=== PATIENT | female | born 1995 | race Caucasian/White ===

== ENCOUNTER 2017-07-03 15:43 | Emergency (ER) | payer OTHER ==
[~2017-07-03] VITALS: Ht 162.6 cm; Wt 50.3 kg
[2017-07-03 15:45] VITALS: BP 112/74; TEMP 36.6; Ht 162.6 cm; Wt 50.3 kg
[2017-07-03] MEDS ORDERED: XYLOCAINE 1%/SOD BICARB 20 ML VIAL INFIL ONE (16:00)
[2017-07-03] MEDS ORDERED: BCPILLS PO (16:01)
--- NOTE | 2017-07-03 16:48 | EMERGENCY ROOM VISIT NOTE ---
ED Visit Note First contact with patient: 15:50 CHIEF COMPLAINT: Left hand laceration 20 minutes ago HISTORY OF PRESENT ILLNESS: Patient is a 22-year-old right hand dominant female who presents emergency department By friends for evaluation of a laceration to the palmar aspect of her left hand. She accidentally cut her hand on a piece of metal while assembling a grill. Bleeding has been controlled with pressure. She denies any numbness or weakness of the thumb. REVIEW OF SYSTEMS: Review of systems as per HPI. All other systems reviewed were negative. At least 6 systems reviewed. PMH: Electronic medical records are reviewed and summarized as above/below. See Problem List. Tetanus is up-to-date. SOCIAL HISTORY: Patient lives at home. College student from [place]. She does not smoke. PHYSICAL EXAM: Vital Signs: Reviewed Nurse's notes. There is a 1.5 cm long laceration on the palmar aspect of the left hand, at the base of the thumb over the MCP crease. Hand. The edges are gaping widely apart. There is no foreign material in the wound and it looks clean. There is no active bleeding. No deep structures such as tendons or nerves are seen in the base of the wound. Flexion , extension and circumduction of the thumb is full and strong. Sensation to pain and light touch is intact. EMERGENCY DEPARTMENT COURSE: Using sterile technique, saline and Betadine cleansing, and 1% lidocaine anesthesia, the laceration was irrigated with saline and then repaired with 4, 5-0 nylon sutures. There is no evidence for tendinous injury. Medication reconciliation: I attest that I have personally reviewed the patient' s current medication list. Blood pressure screening : Patient was found to have normal blood pressure on screening and does not require follow-up. Current/Historical Medications Scheduled Control Pills ( Control Pills), 1 TAB PO DAILY Allergies Coded Allergies: No Known Allergies (Unverified , 07/03/17) Vital Signs Date Time Temp Pulse Resp B/P (MAP) Pulse Ox O2 Delivery O2 Flow Rate FiO2 07/03/17 15:45 36.6 73 16 112/74 96 Room Air Departure Information Impression Primary Impression: Laceration of left hand Referrals [facility] (PCP) Patient Instructions My [facility] Additional Instructions Keep wound clean and dry. Do not allow any crusting or dried blood to accumulate on sutures. If this occurs, use a 1:1 solution of hydrogen peroxide/ water on a Q-tip to clean the wound. Use an antibiotic ointment for 3-4 days, then let wound dry. Suture removal in 10-12 days. Return sooner for any signs of infection (increasing redness, swelling, drainage). Ice and elevate for swelling and pain. Ibuprofen 600 mg and Tylenol 1000 mg every 6 hrs for pain.
[2017-07-03 16:53] VITALS: PULSE 75; O2SAT 98
== END 2017-07-03 16:56 | disposition home or self-care (01) ==
LOC: C.EDB 15:44 → C.EDD 16:56
DX: S61.412A Laceration without foreign body of left hand, initial encounter (principal); W45.8XXA Other foreign body or object entering through skin, initial encounter